=== PATIENT | female | born 1965 | race Caucasian/White ===

== ENCOUNTER 2017-03-04 08:36 | Emergency (ER) | payer MEDICAID ==
[~2017-03-04] VITALS: Ht 167.6 cm; Wt 71.8 kg
[~2017-03-04 08:36] MED LIST: DIAZ5TAB PO; FLUO10CA7 PO; OXYC-302 PO
[2017-03-04 08:41] VITALS: BP 125/75
[2017-03-04] MEDS ORDERED: DIAZEPAM 5 MG TABLET PO ONE (09:30)
[2017-03-04] MEDS ORDERED: KETOROLAC 30 MG/1 ML IM ONE (09:30)
[2017-03-04] MEDS ORDERED: DIAZEPAM 5 MG TABLET ONE (09:43)
[2017-03-04] MEDS ORDERED: KETOROLAC 30 MG/1 ML ONE (09:43)
== END 2017-03-04 10:50 | disposition home or self-care (01) ==
LOC: ED 10:23
DX: S16.1XXA Strain of muscle, fascia and tendon at neck level, initial encounter (principal); S39.012A Strain of muscle, fascia and tendon of lower back, initial encounter; J44.9 Chronic obstructive pulmonary disease, unspecified; I25.10 Atherosclerotic heart disease of native coronary artery without angina pectoris; I25.2 Old myocardial infarction; X58.XXXA Exposure to other specified factors, initial encounter; Y93.89 Activity, other specified; Y92.89 Other specified places as the place of occurrence of the external cause; Y99.8 Other external cause status
CPT/HCPCS: 93005; 96372; 99283; J1885

== ENCOUNTER 2017-03-09 11:01 | Emergency (ER) | payer MEDICAID ==
[~2017-03-09] VITALS: Ht 170.2 cm; Wt 70.6 kg
[2017-03-09] MEDS ORDERED: NAPR500T3 PO (11:58)
[2017-03-09 13:51] VITALS: BP 127/75
== END 2017-03-09 13:53 | disposition home or self-care (01) ==
LOC: ED 11:48
DX: M51.16 Intervertebral disc disorders with radiculopathy, lumbar region (principal); I25.10 Atherosclerotic heart disease of native coronary artery without angina pectoris; I25.2 Old myocardial infarction; J44.9 Chronic obstructive pulmonary disease, unspecified
CPT/HCPCS: 72148; 99284

== ENCOUNTER 2017-03-30 17:30 | Inpatient (IN) | payer MEDICAID ==
[~2017-03-30] VITALS: Ht 172.7 cm; Wt 71.0 kg
[~2017-03-30 17:30] MED LIST changes: +NAPR500T3 PO
[2017-03-30] MEDS ORDERED: ONDANSETRON 2MG/ML, 2ML IVPush ONE (18:00)
[2017-03-30] MEDS ORDERED: SODIUM CHLORIDE 0.9% 1,000ML IVBOLUS ONE (18:00)
[2017-03-30] MEDS ORDERED: SODIUM CHLORIDE FLUSH 10ML SYR IVF ONE (18:00)
[2017-03-30] MEDS ORDERED: MORPHINE SULFATE 4 MG/ML, 1ML ONE ×2 (18:17→19:46)
[2017-03-30] MEDS ORDERED: ONDANSETRON 2MG/ML, 2ML ONE (18:17)
[2017-03-30] MEDS: MORPHINE SULFATE 4 MG/ML, 1ML IVPush PRN ×2 (18:21→19:49)
[2017-03-30 18:23] LABS: ASPARTATE AMINO TRANSFERASE 9 U/L (15-37); BLOOD UREA NITROGEN 15 mg/dL (7-18)
[2017-03-30 18:28] LABS: IS PT STATUS REG ER OR PRE ER? YES
[2017-03-30] MEDS ORDERED: ASPIRIN 81 MG TABLET CHEW PO ONE (19:00)
[2017-03-30] MEDS ORDERED: DOCUSATE 100 MG CAPSULE PO PRN (19:30)
[2017-03-30] MEDS ORDERED: GUAIFENESIN/DM 200-20MG, 10ML UDC PO PRN (19:30)
[2017-03-30] MEDS ORDERED: NITROGLYCERIN 0.4 MG/SPRAY SL PRN (19:30)
[2017-03-30] MEDS ORDERED: ONDANSETRON 2MG/ML, 2ML IVPush PRN (19:30)
[2017-03-30 19:58] LABS: IS PT STATUS REG ER OR PRE ER? YES
[2017-03-30] MEDS ORDERED: ALBUTEROL SULFATE 2.5 MG/3 ML ONE (20:45)
[2017-03-30 21:00] VITALS: BP 111/69
[2017-03-30] MEDS ORDERED: ALBUTEROL SULFATE 2.5 MG/3 ML NPPB PRN (21:00)
[2017-03-30] MEDS ORDERED: LOVASTATIN 40 MG TABLET PO SCH (21:00)
[2017-03-30] MEDS: TEMAZEPAM 15 MG CAPSULE PO PRN ×2 (21:25→23:45)
[2017-03-30] MEDS: morphine SULFATE 10 MG/ML, 1ML IVPush PRN ×2 (21:27→22:31)
[2017-03-30] MEDS: FAMOTIDINE 20 MG TABLET PO SCH (21:27)
[2017-03-30] MEDS: ACETAMINOPHEN 325 MG TABLET PO PRN (23:45)
[2017-03-31 01:31] LABS: IS PT STATUS REG ER OR PRE ER? NO
[2017-03-31 02:32] VITALS: BP 104/68
[2017-03-31] MEDS ORDERED: ALBUTEROL SULFATE 2.5 MG/3 ML NPPB SCH (07:00)
[2017-03-31] MEDS ORDERED: MORPHINE SULFATE 4 MG/ML, 1ML ONE ×2 (07:11→11:55)
[2017-03-31] MEDS: morphine SULFATE 10 MG/ML, 1ML IVPush PRN ×2 (07:15→11:57)
[2017-03-31] MEDS: ACETAMINOPHEN 325 MG TABLET PO PRN (07:15)
[2017-03-31 07:30] VITALS: BP 114/68
[2017-03-31] MEDS ORDERED: REGADENOSON 0.4 MG/5 ML SYRINGE ONE (08:41)
[2017-03-31] MEDS: FAMOTIDINE 20 MG TABLET PO SCH (11:57)
[2017-03-31] MEDS ORDERED: PRED20TA PO (12:57)
[2017-03-31] MEDS ORDERED: ASPI-621 PO (12:57)
[2017-03-31] MEDS ORDERED: ALBUTEROL SULFATE 2.5 MG/3 ML NPPB PRN (15:00)
[2017-03-31 16:35] VITALS: BP 124/76
== END 2017-03-31 18:09 | disposition home or self-care (01) | DRG 313 ==
LOC: ED 18:33 → EDIP 19:40 → 5SO 20:21
PROVIDERS: ADMIT Internal Medicine; ATTEND Internal Medicine
DX: R07.89 Other chest pain (principal); J44.1 Chronic obstructive pulmonary disease with (acute) exacerbation; G35 Multiple sclerosis; I25.10 Atherosclerotic heart disease of native coronary artery without angina pectoris; I25.2 Old myocardial infarction; Z86.73 Personal history of transient ischemic attack (TIA), and cerebral infarction without residual deficits; Z90.49 Acquired absence of other specified parts of digestive tract; Z88.5 Allergy status to narcotic agent; Z87.891 Personal history of nicotine dependence; Z86.711 Personal history of pulmonary embolism
CPT/HCPCS: 36415; 71010; 78452; 80053; 80061; 84443; 84484; 85025; 85379; 93005; 93017; 94640; 96360; 96374; 96375; 96376; J2405; J2785; A9502; C9898; J2270; J7030; J7512

== ENCOUNTER 2017-04-02 21:40 | Emergency (ER) | payer MEDICAID ==
[~2017-04-02] VITALS: Ht 172.7 cm; Wt 67.6 kg
[~2017-04-02 21:40] MED LIST changes: +ASPI-621 PO; +PRED20TA PO
[2017-04-02] MEDS ORDERED: KETOROLAC 30 MG/1 ML IM ONE (22:30)
[2017-04-02] MEDS ORDERED: HYDROmorphone 1 MG/ML, 1ML IM ONE (22:30)
[2017-04-02] MEDS ORDERED: HYDROmorphone 1 MG/ML, 1ML ONE (22:48)
[2017-04-02] MEDS ORDERED: KETOROLAC 30 MG/1 ML ONE (22:48)
[2017-04-02 23:49] VITALS: BP 127/80
== END 2017-04-02 23:53 | disposition home or self-care (01) ==
LOC: ED 23:30
DX: M41.86 Other forms of scoliosis, lumbar region (principal); M51.36 Other intervertebral disc degeneration, lumbar region; M41.9 Scoliosis, unspecified; J44.9 Chronic obstructive pulmonary disease, unspecified; G89.29 Other chronic pain; M54.5 Low back pain; G35 Multiple sclerosis; M41.84 Other forms of scoliosis, thoracic region
CPT/HCPCS: 96372; 99284; J1170; J1885

== ENCOUNTER 2017-04-06 10:04 | Emergency (ER) | payer MEDICAID ==
[~2017-04-06] VITALS: Ht 170.2 cm; Wt 72.5 kg
[2017-04-06 10:07] VITALS: BP 136/79
[2017-04-06] MEDS ORDERED: DIAZEPAM 5 MG TABLET ONE (10:47)
[2017-04-06] MEDS ORDERED: KETOROLAC 30 MG/1 ML ONE (10:47)
[2017-04-06] MEDS ORDERED: DIAZEPAM 5 MG TABLET PO ONE (11:00)
[2017-04-06] MEDS ORDERED: KETOROLAC 30 MG/1 ML IM ONE (11:00)
[2017-04-07] MEDS ORDERED: tramadol (20:19)
[2017-04-07] MEDS ORDERED: NAPR-763 PO (20:19)
[2017-04-07] MEDS ORDERED: ONDA4TAB10 PO (20:20)
== END 2017-04-06 11:51 | disposition home or self-care (01) ==
LOC: ED 11:03
DX: S39.012A Strain of muscle, fascia and tendon of lower back, initial encounter (principal); Z90.49 Acquired absence of other specified parts of digestive tract; Z90.710 Acquired absence of both cervix and uterus; X58.XXXA Exposure to other specified factors, initial encounter; Y93.89 Activity, other specified; Y99.8 Other external cause status; Y92.89 Other specified places as the place of occurrence of the external cause
CPT/HCPCS: 96372; 99283; J1885

== ENCOUNTER 2017-07-09 19:02 | Emergency (ER) | payer MEDICAID ==
[~2017-07-09] VITALS: Ht 172.7 cm; Wt 70.7 kg
[~2017-07-09 19:02] MED LIST changes: +NAPR-763 PO; +ONDA4TAB10 PO; +tramadol
[2017-07-09 21:43] VITALS: BP 114/65
== END 2017-07-09 21:46 | disposition home or self-care (01) ==
LOC: ED 20:42
DX: S39.012A Strain of muscle, fascia and tendon of lower back, initial encounter (principal); I25.2 Old myocardial infarction; J44.9 Chronic obstructive pulmonary disease, unspecified; Z90.49 Acquired absence of other specified parts of digestive tract; W19.XXXA Unspecified fall, initial encounter; Y93.89 Activity, other specified; Y99.8 Other external cause status; Y92.009 Unspecified place in unspecified non-institutional (private) residence as the place of occurrence of the external cause
CPT/HCPCS: 72110; 99284

== ENCOUNTER 2017-09-29 08:01 | Emergency (ER) | payer MEDICAID ==
[~2017-09-29] VITALS: Ht 167.6 cm; Wt 76.0 kg
[~2017-09-29 08:01] MED LIST changes: -NAPR500T3 PO; +NAPR500T4 PO
[2017-09-29] MEDS ORDERED: KETOROLAC 30 MG/1 ML IM ONE (09:00)
[2017-09-29] MEDS ORDERED: KETOROLAC 30 MG/1 ML ONE (09:10)
[2017-09-29 09:58] VITALS: BP 137/78
== END 2017-09-29 10:00 | disposition home or self-care (01) ==
LOC: ED 09:26
DX: G89.29 Other chronic pain (principal); M25.551 Pain in right hip; J44.9 Chronic obstructive pulmonary disease, unspecified; I25.2 Old myocardial infarction; I25.10 Atherosclerotic heart disease of native coronary artery without angina pectoris
CPT/HCPCS: 96372; 99283; J1885

== ENCOUNTER 2017-10-04 13:05 | Emergency (ER) | payer MEDICAID ==
[~2017-10-04] VITALS: Ht 172.7 cm; Wt 74.8 kg
[2017-10-04] MEDS ORDERED: ASPIRIN 81 MG TABLET CHEW PO ONE (14:00)
[2017-10-04 14:29] LABS: ALBUMIN 3.4 g/dL (3.4-5.0); ANION GAP 6 mmol/L (5-15); CALCIUM 8.5 mg/dL (8.5-10.1); CHLORIDE 104 mmol/L (98-107); CREATININE 0.65 mg/dL (0.55-1.02)
[2017-10-04 14:33] LABS: TROPONIN I < 0.015 ng/mL (0.000-0.045)
[2017-10-04 14:34] LABS: RAPID INFLUENZA A Negative (Negative); RAPID INFLUENZA B Negative (Negative)
[2017-10-04] MEDS ORDERED: ASPIRIN 81 MG TABLET CHEW ONE (14:58)
[2017-10-04 15:16] LABS: BASOPHILS # (AUTO) 0.02 x10^3/uL (0-0.1); BASOPHILS % (AUTO) 0 % (0-1); EOSINOPHILS # (AUTO) 0.18 x10^3/uL (0-0.4); EOSINOPHILS % (AUTO) 3 % (1-7); LYMPHOCYTES # (AUTO) 1.22 x10^3/uL (1-3.4); LYMPHOCYTES % (AUTO) 18 % (22-44); MD NO; MEAN CORPUSCULAR HEMOGLOBIN 30.1 pg (27.0-34.8); MEAN CORPUSCULAR HGB CONC 33.8 g/dL (32.4-35.8); MEAN CORPUSCULAR VOLUME 89.2 fL (80-100); MEAN PLATELET VOLUME 7.6 fL (7.4-10.4); MONOCYTES # (AUTO) 0.83 x10^3/uL (0.2-0.8); MONOCYTES % (AUTO) 13 % (2-9); NEUTROPHILS # (AUTO) 4.38 x10^3/uL (1.8-6.8); NEUTROPHILS % (AUTO) 66 % (42-75); PLATELET COUNT 284 x10^3/uL (130-400); RED BLOOD COUNT 4.75 x10^6/uL (3.82-5.3); RED CELL DISTRIBUTION WIDTH 14.6 % (9.6-15.2)
[2017-10-04 15:55] VITALS: BP 110/82
== END 2017-10-04 15:58 | disposition home or self-care (01) ==
LOC: ED 14:00
DX: B34.9 Viral infection, unspecified (principal); I25.10 Atherosclerotic heart disease of native coronary artery without angina pectoris; J44.9 Chronic obstructive pulmonary disease, unspecified; Z90.49 Acquired absence of other specified parts of digestive tract
CPT/HCPCS: 36415; 71046; 80048; 82040; 84484; 85025; 85379; 87400; 93005; 99285

== ENCOUNTER 2017-10-24 16:45 | Emergency (ER) | payer MEDICAID ==
[~2017-10-24] VITALS: Ht 172.7 cm; Wt 78.2 kg
[2017-10-24 16:50] VITALS: BP 132/83
[2017-10-24] MEDS ORDERED: KETOROLAC 30 MG/1 ML ONE (18:26)
[2017-10-24] MEDS ORDERED: OXYcodone/APAP 5/325MG TABLET ONE (18:26)
[2017-10-24] MEDS ORDERED: KETOROLAC 30 MG/1 ML IM ONE (18:30)
[2017-10-24] MEDS ORDERED: KETOROLAC 60 MG/2 ML IM ONE (18:30)
[2017-10-24] MEDS ORDERED: OXYcodone/APAP 5/325MG TABLET PO ONE (18:30)
== END 2017-10-24 19:01 | disposition home or self-care (01) ==
LOC: ED 17:47
DX: S39.012A Strain of muscle, fascia and tendon of lower back, initial encounter (principal); M51.34 Other intervertebral disc degeneration, thoracic region; F32.9 Major depressive disorder, single episode, unspecified; G35 Multiple sclerosis; J44.9 Chronic obstructive pulmonary disease, unspecified; Z90.49 Acquired absence of other specified parts of digestive tract; W10.9XXA Fall (on) (from) unspecified stairs and steps, initial encounter; Y93.01 Activity, walking, marching and hiking; Y99.8 Other external cause status; Y92.89 Other specified places as the place of occurrence of the external cause
CPT/HCPCS: 72072; 72110; 96372; 99284; J1885

== ENCOUNTER 2017-10-30 15:36 | Emergency (ER) | payer MEDICAID ==
[~2017-10-30] VITALS: Ht 172.7 cm; Wt 76.8 kg
[2017-10-30 15:47] VITALS: BP 132/87
[2017-10-30] MEDS ORDERED: DEXAMETHASONE 4 MG TABLET PO ONE (16:30)
[2017-10-30] MEDS ORDERED: OXYcodone/APAP 5/325MG TABLET PO ONE (16:30)
[2017-10-30] MEDS ORDERED: DEXAMETHASONE 4 MG TABLET ONE (16:41)
[2017-10-30] MEDS ORDERED: DIPH,PERTUSS(ACELL),TET VAC/PF 0.5 ML IM-VACC ONE ×2 (16:41→17:00)
[2017-10-30] MEDS ORDERED: OXYcodone/APAP 5/325MG TABLET ONE (16:42)
== END 2017-10-30 17:12 | disposition home or self-care (01) ==
LOC: ED 17:03
DX: L03.011 Cellulitis of right finger (principal); M54.12 Radiculopathy, cervical region; I25.10 Atherosclerotic heart disease of native coronary artery without angina pectoris; J44.9 Chronic obstructive pulmonary disease, unspecified; I25.2 Old myocardial infarction; Z90.49 Acquired absence of other specified parts of digestive tract
CPT/HCPCS: 90471; 90715